=== PATIENT | male | born 1935 | race Caucasian/White ===

== ENCOUNTER → 2016-11-14 | Outpatient (CLI) | payer MEDICARE, OTHER ==
[~2016-11-14] MED LIST: 3N1 COMMODE MC; BACTDS PO; CPM MC; DOXY100T20 PO; FINA5TAB4 PO; LATA2.5D9 BOTH EYES; LISI-313 PO; OXYC5CAP17 PO; RIVA15TA PO; SILO8CAP PO; SIMV-39 PO; TRAM50TA2 PO; TRAZ50TA18 PO; VIT1TABL85 PO; WALK1EAC23 MC
--- NOTE | 2016-11-14 13:59 | RADRPT ---
PROCEDURE: Left knee radiographs. CLINICAL INDICATION: Left knee pain. Postop. TECHNIQUE: Three views. Weight bearing. Frontal, lateral, and patellar view. COMPARISON: 05/30/2016. FINDINGS: There is no fracture or dislocation. Vascular calcifications are present consistent with atherosclerosis. There is a total left knee arthroplasty which appears satisfactory. There is no lytic or blastic lesion. There is no joint effusion. IMPRESSION: 1. Satisfactory postoperative appearance of the left knee. 2. Atherosclerosis. RPTAT: QQ .Srinivas Vargas MD, MD Date Time Electronically viewed and signed by .Srinivas Vargas MD, MD on 11/14/2016 13:58 .R/
== END | disposition home or self-care (01) ==
LOC: HKI 11:02
PROVIDERS: ATTEND Orthopaedic Surgery
DX: Z47.1 Aftercare following joint replacement surgery (principal); Z96.653 Presence of artificial knee joint, bilateral
CPT/HCPCS: 73562; G0463

== ENCOUNTER → 2017-10-03 | Outpatient (CLI) | payer MEDICARE, OTHER ==
--- NOTE | 2017-10-03 15:06 | CONS ---
Date/Time of Note Date/Time of Note DATE: 10/03/17 TIME: 14:49 Assessment/Plan Assessment/Plan Additional Assessment/Plan Assessment: 82-year-old male 3 years status post right total knee arthroplasty in 2 years status post left total arthroplasty. There has been no damage or complication to his total knee arthroplasties from his fall. A small fracture of the right distal pole patella is chronic and old and the patient is completely asymptomatic from this and cannot recall falling on that knee. At this time the patient should continue activities as tolerated. Plan: The patient should follow-up on an annual basis for surveillance with bilateral knee x-rays Consultation Date/Type/Reason Admit Date/Time 10/03/17 Reason for Consultation Fall on September 27 onto left Hx of Present Illness Mr. Thong acosta is an 82-year-old male who is status post bilateral total knee arthroplasties by Dr. Jackson. his right knee is approximately 3 years out in left knee approximately 2 years out from surgery. He was doing well with no issues until he fell from ground-level height onto his left knee on September 27, 2017. Of note he is currently on Coumadin for DVT prophylaxis given his history of venous thromboembolism and lung cancer. Since his fall on September 27 he has some anterior tibial pain but this has significantly improved. He is able to ambulate without much pain. He uses a cane at baseline. He denies any difficulty with range of motion of the left or right knee. Denies any swelling or mechanical symptoms. He comes to clinic today for reassurance. Denies fevers, chills, shortness of breath, chest pain, numbness, tingling. Past Medical History Medical history includes lung cancer, skin cancer, pulmonary embolism, peripheral vascular disease Social History He does not use tobacco products or illicit drug use. Exam/Review of Systems Vital Signs Vitals Temperature: 97.9 Heart Rate: 76 Blood Pressure: 149/70 Respiratory Rate: 16 Exam Bilateral lower extremity exam: Over the left knee and proximal tibia there is significant ecchymosis tracking along tissue planes. The skin is otherwise intact. There is +1 edema in the left lower extremity. Bilateral anterior midline knee incisions are well- healed with no signs of infection. Patient is nontender to palpation throughout both knees. He has a fluid full range of motion without pain of bilateral knees 0 to 120 of flexion. Both knees are stable to varus and valgus stress in both 0 and 30 of flexion as well as through the mid flexion range of motion. Bilateral knees are stable in the AP plane as well. His sensation is intact to light touch in sural, saphenous, superficial peroneal, deep peroneal, and plantar nerves. His motor is intact to ankle dorsiflexion and plantar flexion as well as great toe flexion and extension. He has brisk cap refill on bilateral lower extremities. Imaging Free Text/Dictation Bilateral standing AP, merchant, lateral views of the knees were obtained today in clinic and personally reviewed. Bilateral knees status post total knee arthroplasty. Components are in good position alignment. There are no obvious signs of wear or osteolysis. There are no signs of loosening. No signs of hardware failure. On the lateral of the right knee there is a old chronic fracture of the distal pole of the patella , but the implant is uninvolved with the fracture and is well fixed and intact. GINI LEON MD Oct 03, 2017 15:04
--- NOTE | 2017-10-03 23:19 | RADRPT ---
PROCEDURE: XR Knees. CLINICAL INDICATION: Bilateral knee pain. TECHNIQUE: Total of eight views. Weightbearing frontal, oblique, and lateral views of the both kn ees. Patellar views of both knees. COMPARISON: No prior study is available for comparison. FINDINGS: There are bilateral total knee arthroplasties. These appear satisfactory with no fracture, dislocati on, or loosening. Vascular calcifications are present consistent with atherosclerosis. There are small bilateral joint effusions. There is no lytic or blastic lesion. IMPRESSION: 1. Satisfactory postoperative appearance of both knees. 2. Atherosclerosis. 3. Small bilateral joint effusions. RPTAT: QQ .Srinivas Vargas MD, MD Date Time Electronically viewed and signed by .Srinivas Vargas MD, MD on 10/03/2017 23:19 .R/
== END | disposition home or self-care (01) ==
LOC: HKI 14:18
PROVIDERS: ATTEND Orthopaedic Surgery Adult Reconstructive Orthopaedic Surgery
DX: M25.562 Pain in left knee (principal); I73.9 Peripheral vascular disease, unspecified; Z85.828 Personal history of other malignant neoplasm of skin; Z85.118 Personal history of other malignant neoplasm of bronchus and lung; Z86.711 Personal history of pulmonary embolism
CPT/HCPCS: 73564; G0463